=== PATIENT | male | born 1960 | race African-American/Black ===

== ENCOUNTER 2021-06-07 15:38 | Emergency (ER) | payer OTHER ==
[~2021-06-07] VITALS: Ht 167.6 cm; Wt 77.1 kg
[2021-06-07 15:43] VITALS: TEMP 98
[2021-06-07 16:03] LABS: PLATELET COUNT 354 K/uL (142-355)
[2021-06-07 16:16] LABS: POTASSIUM 3.5 mmol/L (3.6-5.2)
[2021-06-07 17:00] VITALS: BP 115/70
[2021-06-07 17:09] LABS: PARTIAL THROMBOPLASTIN TIME 25.3 SECONDS (24.5-33.6)
== END 2021-06-07 17:30 | disposition short-term general hospital (02) ==
LOC: ED 15:38
PROVIDERS: Hospitalist
DX: I21.09 ST elevation (STEMI) myocardial infarction involving other coronary artery of anterior wall (principal); Z11.52 Encounter for screening for COVID-19; F17.210 Nicotine dependence, cigarettes, uncomplicated
CPT/HCPCS: 36415; 80053; 82550; 83880; 84484; 85027; 85610; 85730; 87635; 93005; 96365; 96375; 99285; J1644; J2270; J2405; U0003